=== PATIENT | female | born 1990 | race American Indian/Alaskan Native ===

== ENCOUNTER 2017-03-06 15:27 | Emergency (ER) | payer BC ==
[2017-03-06 15:46] VITALS: BP 118/86
--- NOTE | 2017-03-06 16:12 | XRay Report ---
ROUTINE CHEST, TWO VIEWS: Chest pain. PA and lateral views demonstrate the heart and mediastinal contour to be of normal size and shape. The lungs are clear and fully expanded and the soft tissues and bony structures are normal. IMPRESSION: Normal study.
[2017-03-06 16:13] LABS: Basophils % (Auto) 0.4 % (0.0-1.8); Eosinophils % (Auto) 0.8 % (0.0-4.3); Hematocrit 34.8 % (30.3-42.9); Hemoglobin 11.1 gm/dl (10.1-14.3); Mean Corpuscular HGB Conc 32 % (30-34); Mean Corpuscular Hemoglobin 27 pg (28-32); Mean Corpuscular Volume 84 fl (79-97); Platelet Count 250 K/mm3 (140-440); Red Blood Count 4.14 M/mm3 (3.65-5.03); White Blood Count 6.2 K/mm3 (4.5-11.0)
[2017-03-06 16:29] LABS: Anion Gap 16 mmol/L; BUN/Creatinine Ratio 11.42; Blood Urea Nitrogen 8 mg/dL (7-17); Calcium 8.9 mg/dL (8.4-10.2); Carbon Dioxide 24 mmol/L (22-30); Chloride 101.1 mmol/L (98-107); Glucose 108 mg/dL (65-100); Potassium 3.5 mmol/L (3.6-5.0); Sodium 138 mmol/L (137-145)
[2017-03-06] MEDS ORDERED: ULTRAM PO ONE (17:50)
--- NOTE | 2017-03-06 18:02 | Emergency Department Report ---
ED Chest Pain HPI - General Chief Complaint: Chest Pain Stated Complaint: CHEST PAIN Time Seen by Provider: 03/06/17 17:40 Source: patient Mode of arrival: Ambulatory Limitations: No Limitations - History of Present Illness Initial Comments: I woke up this morning and reached around and felt a sharp pain in my right side that moves to my back , now hurt to take deep breath or move my arm" Complaint: other (chest wall pain ) Onset/Timin -: days(s) Onset: other (sudden onset upon awakening this am ) Pain Location: right chest Pain Radiation: back Severity: moderate Severity scale (0 -10): 4 Quality: sharp Consistency: intermittent Improves With: rest Worsens With: inspiration, palpation, movement re: denies: nausea, vomting, diaphoresis, dyspnea, sense of impending doom Other Symptoms: burping. denies: cough, fever, syncope, rash, acid taste in mouth, leg swelling, palpitations Treatments Prior to Arrival: none - Related Data On Oral Contraceptives: No Previous Rx's Medication Instructions Recorded Last Taken Type Cyclobenzaprine [Flexeril] 10 mg PO TID PRN #30 tablet 03/06/17 Unknown Rx Naproxen [Naprosyn TAB] 500 mg PO BID PRN #60 tablet 03/06/17 Unknown Rx Allergies Allergy/AdvReac Type Severity Reaction Status Date / Time No Known Allergies Allergy Unverified 03/06/17 15:42 Heart Score - HEART Score History: Slightly suspicious EKG: Normal (heart score: 1, Wells score: 0 PERC Score: 0) Age: < 45 Risk factors: No known risk factors Troponin: < normal limit HEART Score: 0 ED Review of Systems ROS: Stated complaint: CHEST PAIN Other details as noted in HPI Constitutional: denies: chills, fever Eyes: denies: eye pain, eye discharge, vision change ENT: denies: ear pain, throat pain Respiratory: denies: cough, shortness of breath, wheezing Cardiovascular: denies: chest pain, palpitations, dyspnea on exertion, edema, syncope, paroxysmal nocturnal dyspnea Endocrine: no symptoms reported Gastrointestinal: denies: abdominal pain, nausea, vomiting, diarrhea, constipation, hematemesis, hematochezia Genitourinary: denies: urgency, dysuria, frequency, hematuria, discharge, abnormal menses, dyspareunia Musculoskeletal: denies: back pain, joint swelling, arthralgia Skin: denies: rash, lesions Neurological: denies: headache, weakness, paresthesias Psychiatric: denies: anxiety, depression Hematological/Lymphatic: denies: easy bleeding, easy bruising ED Past Medical Hx - Past Medical History Previous Medical History?: No Additional medical history: Hx of lung collapse as a baby and heart murmur - Surgical History Past Surgical History?: No - Social History Smoking Status: Never Smoker Substance Use Type: Alcohol - Medications Home Medications: Home Medications Medication Instructions Recorded Confirmed Last Taken Type Cyclobenzaprine [Flexeril] 10 mg PO TID PRN #30 tablet 03/06/17 Unknown Rx Naproxen [Naprosyn TAB] 500 mg PO BID PRN #60 tablet 03/06/17 Unknown Rx ED Physical Exam - General Limitations: No Limitations General appearance: alert, in no apparent distress - Head Head exam: Present: atraumatic, normocephalic - Eye Eye exam: Present: normal appearance - ENT ENT exam: Present: normal exam, mucous membranes moist - Neck Neck exam: Present: normal inspection - Respiratory Respiratory exam: Present: normal lung sounds bilaterally, chest wall tenderness. Absent: respiratory distress, wheezes, rales, rhonchi, stridor, accessory muscle use, decreased breath sounds, prolonged expiratory - Cardiovascular Cardiovascular Exam: Present: regular rate, normal rhythm, normal heart sounds. Absent: systolic murmur, diastolic murmur, rubs, gallop - Expanded Cardiovascular Exam Expanded Peripheral pulses: 2+: Carotid (R), Carotid (L), Radial (R), Radial (L), Femoral (R), Femoral (L), Posterior Tibialis (R), Posterior Tibialis (L), Dorsalis Pedis (R), Dorsalis Pedis (L) 1 - chest wall tenderness - GI/Abdominal GI/Abdominal exam: Present: soft, normal bowel sounds. Absent: distended, tenderness, guarding, rebound, rigid, organomegaly, mass, bruit, pulsatile mass , hernia - Rectal Rectal exam: Present: deferred - Extremities Exam Extremities exam: Present: normal inspection - Back Exam Back exam: Present: normal inspection - Neurological Exam Neurological exam: Present: alert - Psychiatric Psychiatric exam: Present: normal affect, normal mood - Skin Skin exam: Present: warm, dry, intact, normal color. Absent: rash ED Course Vital Signs 03/06/17 15:42 Temperature 98.5 F Pulse Rate 87 Respiratory 16 Rate Blood Pressure 118/86 O2 Sat by Pulse 100 Oximetry OSWALD score - Oswald Score Age > 65: (0) No Aspirin use within the Past 7 Days: (0) No 3 or more CAD Risk Factors: (0) No 2 or more Angina events in past 24 hrs: (0) No Known CAD with more than 50% Stenosis: (0) No Elevated Cardiac Markers: (0) No ST Deviation Greater than 0.5mm: (0) No OSWALD Score: 0 ED Medical Decision Making - Lab Data Result diagrams: 03/06/17 15:55 03/06/17 15:55 Laboratory Tests 03/06/17 03/06/17 03/06/17 15:55 15:55 17:54 WBC 6.2 RBC 4.14 Hgb 11.1 Hct 34.8 MCV 84 MCH 27 L MCHC 32 RDW 15.0 Plt Count 250 Lymph % (Auto) 20.4 Jennings % (Auto) 9.1 H Eos % (Auto) 0.8 Baso % (Auto) 0.4 Lymph # 1.3 Jennings # 0.6 Eos # 0.0 Baso # 0.0 Seg Neutrophils % 69.3 Seg Neutrophils # 4.3 Sodium 138 Potassium 3.5 L Chloride 101.1 Carbon Dioxide 24 Anion Gap 16 BUN 8 Creatinine 0.7 Estimated GFR > 60 BUN/Creatinine Ratio 11.42 Glucose 108 H Calcium 8.9 Troponin T < 0.010 < 0.010 - Radiology Data Radiology results: report reviewed normal chest Xray - Medical Decision Making pt is a 26 y/o aaf with nmh , , LMP today who presents for right sided chest wall pain upon awakening this am pt denies fever no chills no n/v, no sob , n dizziness no lightheadedness , pt appears well nontoxic, exam: right lateral midaxillary chest wall pain that is reproduced to palpation ,lung clear bilat all lobes no wheezing there is no mike, CV: S1 and S2 no MRG, no pnd, no edema,Abd: BS normal x 4 qds, large round soft no tenderness no rebound no bruit no hernia, no recent travel , no hx dvt, N [place] Heart Score : 1 for cp , PERC: 0 for PE, Wells: 0 for PE, there is no cva tenderness, pt is ambulatory in ED with sob no mike, vs noted , EKG: noted NSR, cmp, cbc, trop: < 0.010, repeat trop: 0.010 , pain is decreased with po ultram given in ED for 10/18 from 04/17 with deep breath, pt with current menses, ua: pt continues shy bladder , on current menses , denies hcg serum, will dc to home, with rx for nsaids and muscle relaxants for Dx: Chest Wall pain , pt will follow up with primary care Dr. Day if symptoms no improving. Critical care attestation.: If time is entered above; I have spent that time in minutes in the direct care of this critically ill patient, excluding procedure time. ED Disposition Clinical Impression: Right-sided chest wall pain Disposition: DC-01 TO HOME OR SELFCARE Is pt being admited?: No Does the pt Need Aspirin: No Condition: Stable Instructions: Costochondritis (ED), Chest Pain (ED) Prescriptions: Cyclobenzaprine [Flexeril] 10 mg PO TID PRN #30 tablet PRN Reason: Muscle Spasm Naproxen [Naprosyn TAB] 500 mg PO BID PRN #60 tablet PRN Reason: Pain Referrals: PRIMARY CARE, [Primary Care Provider] - 3-5 Days Forms: Work/School Release Form(ED)
[2017-03-06 19:03] LABS: Bilirubin,Urine NEG (Negative); Blood,Urine LG (Negative); Ketones,Urine NEG (Negative); Leukocyte Esterase,Urine NEG (Negative); Mucus,Urine FEW /HPF; Nitrite,Urine NEG (Negative); Protein,Urine <15 mg/dL mg/dL (Negative)
== END 2017-03-06 19:20 | disposition home or self-care (01) ==
LOC: ED 15:27
DX: R07.89 Other chest pain (principal)
CPT/HCPCS: 36415; 71020; 80048; 81001; 81025; 84484; 85025; 93005; 93010

== ENCOUNTER 2017-12-10 06:58 | Emergency (ER) | payer BC ==
[2017-12-10 07:36] VITALS: BP 122/77
--- NOTE | 2017-12-10 08:27 | Emergency Department Report ---
Minor Respiratory - HPI Chief Complaint: Upper Respiratory Infection Stated Complaint: FATIGUE, HEADACHE,EAR ACHE, COUGH, PUS IN EYES Time Seen by Provider: 12/10/17 08:24 Duration: 4 Days Pain Location: Throat, Ear (right) Severity: moderate Minor Respiratory: Yes Rhinorrhea, Yes Sore Throat, Yes Able to Tolerate Fluids , Yes Ear Pain (right), Yes Cough, Yes Sick Contacts, No Hemoptysis, No Chest Pain, No Shortness of Breath, No Fever Other History: This is a 26 y.o. female that presents with right ear pain, crusty pink right eye, cough, congestion, and sore throat for 4 days. Patient reports taking theraflu and nyquil for 2 days with no improvement of symptoms. She was around nephew who was sick with pink eye and pneumonia. She came in to work this morning and they told her to come over to ER for evaluation. Denies chest pain, SOB, fever, nausea/vomiting, or abdominal pain. ED Review of Systems ROS: Stated complaint: FATIGUE, HEADACHE,EAR ACHE, COUGH, PUS IN EYES Other details as noted in HPI Constitutional: denies: chills, fever Eyes: eye discharge (right eye, thick yellowish discharge and red). denies: eye pain, vision change ENT: ear pain (right ear pain), throat pain, congestion. denies: dental pain, hearing loss, epistaxis Respiratory: cough. denies: shortness of breath, wheezing Cardiovascular: denies: chest pain, palpitations, dyspnea on exertion, syncope Gastrointestinal: denies: abdominal pain, nausea, diarrhea Neurological: denies: headache, weakness, numbness, paresthesias Psychiatric: denies: anxiety, depression ED Past Medical Hx - Past Medical History Previous Medical History?: Yes Additional medical history: Hx of lung collapse as a baby and heart murmur - Surgical History Past Surgical History?: No - Social History Smoking Status: Never Smoker Substance Use Type: Alcohol - Medications Home Medications: Home Medications Medication Instructions Recorded Confirmed Last Taken Type Cyclobenzaprine [Flexeril] 10 mg PO TID PRN #30 tablet 03/06/17 Unknown Rx Naproxen [Naprosyn TAB] 500 mg PO BID PRN #60 tablet 03/06/17 Unknown Rx Amoxicillin 500 mg PO BID 10 Days #20 capsule 12/10/17 Unknown Rx Azithromycin(Nf)1% Ophth Soln 1 drops OD BID 5 Days #1 bottle 12/10/17 Unknown Rx [Azasite 1% Ophth Soln] Benzonatate 200 mg PO TID PRN #30 capsule 12/10/17 Unknown Rx Minor Respiratory Exam - Exam General: Vital signs noted. No distress. Alert and acting appropriately. HEENT: Yes Pharyngeal Erythema, Yes Moist Mucous Membranes, Yes Rhinorrhea ( turbinated mildly congested, clear discharge), Yes Conjuctival Injection (right , yellow crusting of eyelid), No Pharyngeal Exudates, No Frontal Tenderness, No Maxillary Tenderness Ear: Right TM Bulge, Right TM Erythema, Right EAC Pain, Neither EAC Discharge Neck: Yes Supple, No Adenopathy Lungs: Yes Good Air Exchange, Yes Cough, No Wheezes, No Ronchi, No Stridor, No Labored Respirations, No Retractions, No Use of Accessory Muscles, No Other Abnormal Lung Sounds Heart: Yes Regular, No Murmur Abdomen: Yes Normal Bowel Sounds, No Tenderness, No Peritoneal Signs Skin: No Rash, No Edema Neurologic: Alert and oriented, no deficits. Musculoskeletal: Unremarkable. ED Course Vital Signs 12/10/17 07:32 Temperature 98.6 F Pulse Rate 108 H Respiratory 18 Rate Blood Pressure 122/77 O2 Sat by Pulse 98 Oximetry ED Medical Decision Making - Medical Decision Making This is a 26 y.o. female that presents with right ear pain and upper respiratory symptoms for 4 days. Patient is stable and was examined by me. Vitals normal. Physical assessment susceptible of otitis media of right ear, conjunctivitis of right eye. Start amoxicillin, azithromycin gtts, benzonatate, tylenol or ibuprofen for pain. Discussed plan with patient and she agreed with plan. Patient is employee and wanted to return to work today. Given Dr schneider to return tomorrow for bacterial conjuctivitis. Discharged home in stable condition. Follow up with PCP in 24-72 hours. Critical care attestation.: If time is entered above; I have spent that time in minutes in the direct care of this critically ill patient, excluding procedure time. ED Disposition Clinical Impression: Conjunctivitis Qualifiers: Conjunctivitis type: acute Acute conjunctivitis type: bacterial Laterality: right Qualified Code(s): H10.31 - Unspecified acute conjunctivitis, right eye Otitis media Qualifiers: Otitis media type: suppurative Chronicity: acute Laterality: right Recurrence: not specified as recurrent Spontaneous tympanic membrane rupture: without spontaneous rupture Qualified Code(s): H66.001 - Acute suppurative otitis media without spontaneous rupture of ear drum, right ear Upper respiratory infection Qualifiers: URI type: acute laryngitis Qualified Code(s): J04.0 - Acute laryngitis Disposition: DC-01 TO HOME OR SELFCARE Is pt being admited?: No Does the pt Need Aspirin: No Condition: Stable Instructions: Laryngitis (ED), Otitis Media (ED), Conjunctivitis (ED) Additional Instructions: Increase fluid intake and rest. Wash hands frequently. Take antibiotics as prescribed to avoid recurrence of the ear infection. Continue taking tylenol or ibuprofen to control fever. Avoid high altitudes, may worsen the pain during ear infection. F/U with Primary Care Provider if symptoms are not improved in 2-3 days. Return to ER if fever, SOB, or difficulty breathing after 48 hours of supportive care. Prescriptions: Amoxicillin 500 mg PO BID 10 Days #20 capsule Azithromycin(Nf)1% Ophth Soln [Azasite 1% Ophth Soln] 1 drops OD BID 5 Days #1 bottle Benzonatate 200 mg PO TID PRN #30 capsule PRN Reason: Cough Referrals: [facility] [Outside] - 3-5 Days [facility] [Outside] - 3-5 Days [facility] [Outside] - 3-5 Days Forms: Work/School Release Form(ED) Time of Disposition: 09:28 Print Language: YORUBA
== END 2017-12-10 09:44 | disposition home or self-care (01) ==
LOC: ED 06:58
DX: H10.31 Unspecified acute conjunctivitis, right eye (principal); H66.91 Otitis media, unspecified, right ear; J06.9 Acute upper respiratory infection, unspecified
CPT/HCPCS: 99282